=== PATIENT | female | born 1995 | race Caucasian/White ===

== ENCOUNTER → 2017-11-26 15:08 | Outpatient (CLI) | payer OTHER, SELFPAY ==
[2017-11-26 15:38] LABS: Basophils % 0.4 % (0.1-2.0); Eosinophils # 0.1 K/mm3 (0.0-0.4); Hemoglobin 11.9 g/dL (12.2-16.2); Lymphocytes # 2.3 K/mm3 (0.7-4.5); Lymphocytes % 21.6 K/mm3 (10-50); Mean Corpuscular Hemoglobin 28.1 pg (27.0-31.2); Mean Corpuscular Volume 85.2 fl (81-99); Mean Platelet Volume 7.7 fl (7.4-10.4); Monocytes # 0.4 K/mm3 (0.1-1.0); Monocytes % 3.8 % (1.7-9.3); Neutrophils # 7.8 K/mm3 (1.8-7.8); Neutrophils % 73.1 % (37.0-80.0); Platelet Count 286 K/mm3 (142-424); Red Blood Count 4.23 M/mm3 (4.20-5.40); Red Cell Distribution Width 12.7 % (11.5-17.5); White Blood Count 10.7 K/mm3 (4.5-13.0)
[2017-11-26 20:15] LABS: Amphetamine/Metha Screen,Urine Negative ng/mL (<1000); Barbiturates Screen,Urine Negative ng/mL (<200); Benzodiazepines Screen,Urine Negative ng/mL (200); Cannabinoid Screen,Urine Negative ng/mL (<50); Cocaine Screen,Urine Negative ng/g (<300); Methadone Screen,Urine Negative ng/mL (<300); Opiate Screen,Urine Negative ng/mL (<300); Phencyclidine Screen,Urine Negative ng/mL (<25)
[2017-11-28 18:35] LABS: Hepatitis B Surface Antigen Negative (Negative)
[2017-11-28 18:36] LABS: HIV Screen 4th Generation wRfx Non Reactive (Non Reactive); Rubella Antibodies, IgG 1.38 index (Immune >0.99)
== END ==
PROVIDERS: PCP Family Medicine; Visit Provider Obstetrics & Gynecology
DX: Z34.90 Encounter for supervision of normal pregnancy, unspecified, unspecified trimester (principal)
CPT/HCPCS: 36415; 80305; 84443; 85025; 86703; 86762; 86850; 87340; G0432

== ENCOUNTER → 2017-12-29 09:40 | Outpatient (CLI) | payer OTHER, SELFPAY ==
[2018-01-01 02:08] LABS: AFP Value 27.8 ng/mL (.); DIA MoM 0.88 (.); DIA Value 150.47 pg/mL (.); DSR (Second Trimester) 1 IN 10000 (.); Insulin Dep Diabetes No (.); OSBR Risk 1 IN 10000 (.); Results Report (.); hCG Value 51261 mIU/mL (.); uE3 MoM 1.54 (.); uE3 Value 1.18 ng/mL (.)
[2018-01-01 12:57] LABS: Gestat. Age Based On EDD (.)
== END ==
PROVIDERS: PCP Family Medicine; Visit Provider Obstetrics & Gynecology
DX: Z34.90 Encounter for supervision of normal pregnancy, unspecified, unspecified trimester (principal)
CPT/HCPCS: 36415; 82106

== ENCOUNTER → 2018-03-23 09:04 | Outpatient (CLI) | payer OTHER, SELFPAY ==
[2018-03-23 12:52] LABS: Glucose 1 Hour 88 mg/dL (74-106)
== END ==
PROVIDERS: PCP Family Medicine; Visit Provider Obstetrics & Gynecology
DX: Z34.90 Encounter for supervision of normal pregnancy, unspecified, unspecified trimester (principal)
CPT/HCPCS: 36415; 82951

== ENCOUNTER 2018-05-02 20:09 | Outpatient (CLI) | payer OTHER, SELFPAY ==
[2018-05-02 20:23] VITALS: BMI 32.5
[2018-05-02 20:58] LABS: Microscopic, Urine URINE MICROSCOPIC (MICROSCOPIC)
[2018-05-02 21:01] LABS: Appearance,Urine CLEAR (Clear); Bilirubin,Urine Negative (Negative); Blood, Urine Negative (Negative); Color,Urine STRAW (Yellow); Glucose,Urine (UA) Negative (Negative); Ketones,Urine Negative (Negative); Leukocyte Esterase,Urine Negative (Negative); Nitrate,Urine Negative (Negative); PH,Urine 6.5 (5.0-8.5); Protein,Urine Negative (Negative); Specific Gravity, Urine <= 1.005 (1.005-1.030); Urobilinogen,Urine 0.2 EU/dl (0.2)
[2018-05-02 21:15] LABS: Bacteria,Urine Trace /lpf; WBC,Urine Occasional #/hpf (0-3)
[2018-05-02 21:23] LABS: Fetal Fibronectin (Rapid) Negative (Negative)
[2018-05-03 00:31] VITALS: BMI 32.5
== END 2018-05-02 21:45 | disposition home or self-care (01) ==
LOC: OBOUT 20:12 → OB 20:13
PROVIDERS: PCP Family Medicine; Visit Provider Nurse Practitioner Obstetrics & Gynecology
DX: O26.93 Pregnancy related conditions, unspecified, third trimester (principal); Z3A.32 32 weeks gestation of pregnancy; R10.31 Right lower quadrant pain; R10.32 Left lower quadrant pain
CPT/HCPCS: 59025; 81001; 82731

== ENCOUNTER 2018-05-12 12:26 | Outpatient (CLI) | payer OTHER, SELFPAY ==
[2018-05-12 12:35] VITALS: BMI 32.6
[2018-05-12 12:47] LABS: Microscopic, Urine URINE MICROSCOPIC (MICROSCOPIC)
[2018-05-12 12:51] LABS: Appearance,Urine CLEAR (Clear); Bilirubin,Urine Negative (Negative); Blood, Urine Negative (Negative); Color,Urine YELLOW (Yellow); Glucose,Urine (UA) Negative (Negative); Ketones,Urine Negative (Negative); Leukocyte Esterase,Urine TRACE (Negative); Nitrate,Urine Negative (Negative); Protein,Urine Negative (Negative); Specific Gravity, Urine 1.015 (1.005-1.030); Urobilinogen,Urine 0.2 EU/dl (0.2)
[2018-05-12 12:52] VITALS: BP 129/77; PULSE 99; RESP 18; TEMP 37.1; O2SAT 97; BMI 32.5
[2018-05-12 13:13] LABS: Bacteria,Urine Trace /lpf; WBC,Urine Occasional #/hpf (0-3)
[2018-05-12 13:18] LABS: Fetal Membrane Rupture (Rapid) Negative (Negative)
== END 2018-05-12 13:46 | disposition home or self-care (01) ==
LOC: OBOUT 12:27 → OB 12:29
PROVIDERS: Obstetrics & Gynecology; PCP Physician Assistant; Visit Provider Obstetrics & Gynecology
DX: O26.893 Other specified pregnancy related conditions, third trimester (principal); Z3A.33 33 weeks gestation of pregnancy
CPT/HCPCS: 59025; 81001; 84112; 96372

== ENCOUNTER → 2018-05-14 10:30 | Outpatient (REF) | payer OTHER, SELFPAY | LOC: LAB 10:30 | PROVIDERS: Visit Provider Obstetrics & Gynecology | DX: Z34.90 Encounter for supervision of normal pregnancy, unspecified, unspecified trimester (principal) | CPT/HCPCS: 86403 ==

== ENCOUNTER → 2018-06-04 08:59 | Outpatient (CLI) | payer OTHER, SELFPAY ==
[2018-06-04 09:42] LABS: Basophils % 0.2 % (0.1-2.0); Eosinophils # 0.1 K/mm3 (0.0-0.4); Eosinophils % 0.9 % (0.1-12.0); Hematocrit 38.5 % (37.0-47.0); Hemoglobin 12.3 g/dL (12.2-16.2); Lymphocytes # 2.2 K/mm3 (0.7-4.5); Lymphocytes % 19.8 K/mm3 (10-50); Mean Corpuscular HGB Conc 31.9 g/dL (31.8-35.4); Mean Corpuscular Volume 84.6 fl (81-99); Mean Platelet Volume 8.4 fl (7.4-10.4); Monocytes # 0.6 K/mm3 (0.1-1.0); Monocytes % 5.2 % (1.7-9.3); Neutrophils # 8.3 K/mm3 (1.8-7.8); Neutrophils % 73.9 % (37.0-80.0); Platelet Count 288 K/mm3 (142-424); Red Blood Count 4.55 M/mm3 (4.20-5.40); Red Cell Distribution Width 14.8 % (11.5-17.5); White Blood Count 11.3 K/mm3 (4.8-10.8)
[2018-06-04 10:53] LABS: D-Dimer 1840 ng/mL (0-400)
[2018-06-04 11:15] LABS: Alanine Aminotransferase 22 U/L (12-78); Anion Gap 15.1 mEq/L (5-15); Aspartate Amino Transferase 20 U/L (15-37); Blood Urea Nitrogen 6 mg/dL (7-18); Calcium 9.3 mg/dL (8.5-10.1); Carbon Dioxide 23 mmol/L (21.0-32.0); Chloride 104 mmol/L (98-107); Creatinine,Serum 0.58 mg/dL (0.55-1.02); Estimated Glomerular Filt Rate 131 ml/min (>60); GFR (African American) 159 ML/MIN (>60); Glucose 102 mg/dL (74-106); Potassium 4.1 mmoL/L (3.5-5.1); Sodium 138 mmol/L (136-145); Uric Acid 6.1 mg/dL (2.6-7.2)
[2018-06-04 16:23] LABS: Activated Partial Thrombo Time 25.9 seconds (23.6-34.0); Fibrinogen 491 mg/dL (204-500); Prothrombin Time 9.3 seconds (9.4-11.8)
== END ==
PROVIDERS: PCP Physician Assistant; Visit Provider Obstetrics & Gynecology
DX: Z34.90 Encounter for supervision of normal pregnancy, unspecified, unspecified trimester (principal)
CPT/HCPCS: 36415; 80048; 84450; 84460; 84550; 85025; 85378; 85384; 85610; 85730

== ENCOUNTER → 2018-06-07 09:31 | Outpatient (CLI) | payer OTHER, SELFPAY ==
[2018-06-07 10:15] LABS: Basophils % 0.3 % (0.1-2.0); Eosinophils # 0.1 K/mm3 (0.0-0.4); Eosinophils % 0.6 % (0.1-12.0); Hematocrit 35.1 % (37.0-47.0); Hemoglobin 11.2 g/dL (12.2-16.2); Lymphocytes # 2.3 K/mm3 (0.7-4.5); Lymphocytes % 20.1 K/mm3 (10-50); Mean Corpuscular Hemoglobin 26.7 pg (27.0-31.2); Mean Corpuscular Volume 83.4 fl (81-99); Mean Platelet Volume 8.1 fl (7.4-10.4); Monocytes # 0.6 K/mm3 (0.1-1.0); Monocytes % 4.7 % (1.7-9.3); Neutrophils # 8.6 K/mm3 (1.8-7.8); Neutrophils % 74.3 % (37.0-80.0); Platelet Count 270 K/mm3 (142-424); Red Blood Count 4.21 M/mm3 (4.20-5.40); White Blood Count 11.6 K/mm3 (4.8-10.8)
[2018-06-07 10:20] LABS: Alanine Aminotransferase 19 U/L (12-78); Anion Gap 17.8 mEq/L (5-15); Aspartate Amino Transferase 15 U/L (15-37); Blood Urea Nitrogen 7 mg/dL (7-18); Calcium 8.9 mg/dL (8.5-10.1); Carbon Dioxide 22 mmol/L (21.0-32.0); Chloride 104 mmol/L (98-107); Creatinine,Serum 0.68 mg/dL (0.55-1.02); Estimated Glomerular Filt Rate 109 ml/min (>60); GFR (African American) 132 ML/MIN (>60); Glucose 99 mg/dL (74-106); Potassium 3.8 mmoL/L (3.5-5.1); Sodium 140 mmol/L (136-145); Uric Acid 7.1 mg/dL (2.6-7.2)
[2018-06-07 10:42] LABS: D-Dimer 2100 ng/mL (0-400)
[2018-06-07 11:02] LABS: Activated Partial Thrombo Time 25.6 seconds (23.6-34.0); Fibrinogen 461 mg/dL (204-500); Prothrombin Time 9.3 seconds (9.4-11.8)
== END ==
PROVIDERS: PCP Physician Assistant; Visit Provider Obstetrics & Gynecology
DX: O14.90 Unspecified pre-eclampsia, unspecified trimester (principal)
CPT/HCPCS: 36415; 80048; 84450; 84460; 84550; 85025; 85378; 85384; 85610; 85730

== ENCOUNTER 2018-06-10 11:36 | Inpatient (IN) ==
[2018-06-10 12:29] LABS: Basophils % 0.4 % (0.1-2.0); Eosinophils # 0.1 K/mm3 (0.0-0.4); Eosinophils % 0.5 % (0.1-12.0); Hematocrit 36.2 % (37.0-47.0); Hemoglobin 11.6 g/dL (12.2-16.2); Lymphocytes # 2.1 K/mm3 (0.7-4.5); Lymphocytes % 19.9 K/mm3 (10-50); Mean Corpuscular HGB Conc 32.1 g/dL (31.8-35.4); Mean Corpuscular Hemoglobin 26.5 pg (27.0-31.2); Mean Corpuscular Volume 82.4 fl (81-99); Mean Platelet Volume 8.3 fl (7.4-10.4); Monocytes # 0.6 K/mm3 (0.1-1.0); Neutrophils # 7.7 K/mm3 (1.8-7.8); Neutrophils % 73.2 % (37.0-80.0); Platelet Count 302 K/mm3 (142-424); Red Blood Count 4.39 M/mm3 (4.20-5.40); White Blood Count 10.5 K/mm3 (4.8-10.8)
[2018-06-10 12:40] LABS: Calcium 9.4 mg/dL (8.5-10.1); Uric Acid 6.3 mg/dL (2.6-7.2)
[2018-06-10 13:03] LABS: Activated Partial Thrombo Time 24.1 seconds (23.6-34.0); INR 0.89 (0.9-1.1); Prothrombin Time 9.2 seconds (9.4-11.8)
--- NOTE | 2018-06-10 14:35 | Progress Note ---
Internal Medicine - PN: Subj *Date: 06/10/18 *Time: 14:32 Interval history: This 23-year-old 1, para 0, Ab0 white female was admitted at 37-6/7 weeks with signs and symptoms of preeclampsia. Her blood pressure in the office was 132/93 (previous diastolic 75), with increased reflexes and 2+ edema. An ultrasound also showed diminishing amniotic fluid (oligohydramnios). She was admitted for stabilization magnesium sulfate prior to induction. However, upon admission to the labor room, her blood pressure is 116/76, and the baby delivered on the monitor. Her D-dimers, however, have increased from 2100 to greater than 2500. The plan is to observe her and stabilize her on bedrest. Her cervix is 75% effaced, 2 cm, with the resenting vertex at -2 station. Plan is to begin induction late tonight. The patient and her family understand and accept this plan. Exam Vital signs and Labs for Last 24 Hours: Temp Pulse Resp BP 98.0 F 80 20 116/67 06/10/18 12:39 06/10/18 12:39 06/10/18 12:39 06/10/18 12:39 Laboratory Results - last 24 hr 06/10/18 12:15: WBC 10.5, RBC 4.39, Hgb 11.6 L, Hct 36.2 L, MCV 82.4, MCH 26.5 L , MCHC 32.1, RDW 15.0, Plt Count 302, MPV 8.3, Neut % (Auto) 73.2, Lymph % (Auto) 19.9, [place] % (Auto) 6.0, Eos % (Auto) 0.5, Baso % (Auto) 0.4, Neut # (Auto) 7.7, Lymph # (Auto) 2.1, [place] # (Auto) 0.6, Eos # (Auto) 0.1, Baso # (Auto) 0.0 06/10/18 12:15: PT 9.2 L, INR 0.89 L, APTT 24.1, Fibrinogen 486, D-Dimer 2560 H* 06/10/18 12:15: Sodium 138, Potassium 4.0, Chloride 104, Carbon Dioxide 22, Anion Gap 16.0 H, BUN 6 L, Creatinine 0.60, Estimated Creat Clear 192, Estimated GFR 126, Est GFR ( Amer) 153, Glucose 85, Uric Acid 6.3, Calcium 9.4, Magnesium 1.8, AST 18, ALT 23 06/10/18 12:15: Blood Type A Positive, Antibody Screen Negative I & O for Last 24 hours: Intake & Output 06/08/18 06/09/18 06/10/18 06/11/18 11:59 11:59 11:59 11:59 Weight 181 lb
--- NOTE | 2018-06-11 06:19 | Progress Note ---
Internal Medicine - PN: Subj *Date: 06/11/18 *Time: 06:17 Interval history: This is hospital day #2. At 0200 intravenous Pitocin was begun. At time the patient's cervix was 3 cm dilated. At 0330, there was spontaneous rupture of membranes (clear fluid). The patient's pressure remained to be in the 130s over 70s. Reflexes are normal. An epidural has been placed, and internal monitor was just applied. Cervix is now completely effaced, 9 cm, with the presenting vertex at 0 station. Vaginal delivery anticipated. Exam Vital signs and Labs for Last 24 Hours: Temp Pulse Resp BP 98.0 F 80 20 116/67 06/10/18 12:39 06/10/18 12:39 06/10/18 12:39 06/10/18 12:39 Laboratory Results - last 24 hr 06/10/18 12:15: WBC 10.5, RBC 4.39, Hgb 11.6 L, Hct 36.2 L, MCV 82.4, MCH 26.5 L , MCHC 32.1, RDW 15.0, Plt Count 302, MPV 8.3, Neut % (Auto) 73.2, Lymph % (Auto) 19.9, [place] % (Auto) 6.0, Eos % (Auto) 0.5, Baso % (Auto) 0.4, Neut # (Auto) 7.7, Lymph # (Auto) 2.1, [place] # (Auto) 0.6, Eos # (Auto) 0.1, Baso # (Auto) 0.0 06/10/18 12:15: PT 9.2 L, INR 0.89 L, APTT 24.1, Fibrinogen 486, D-Dimer 2560 H* 06/10/18 12:15: Sodium 138, Potassium 4.0, Chloride 104, Carbon Dioxide 22, Anion Gap 16.0 H, BUN 6 L, Creatinine 0.60, Estimated Creat Clear 192, Estimated GFR 126, Est GFR ( Amer) 153, Glucose 85, Uric Acid 6.3, Calcium 9.4, Magnesium 1.8, AST 18, ALT 23 06/10/18 12:15: Blood Type A Positive, Antibody Screen Negative I & O for Last 24 hours: Intake & Output 06/08/18 06/09/18 06/10/18 06/11/18 11:59 11:59 11:59 11:59 Weight 181 lb
--- NOTE | 2018-06-11 06:56 | Progress Note ---
Internal Medicine - PN: Subj *Date: 06/11/18 *Time: 06:56 (Cervix now completely effaced, a rim, 0 station. Doing well.) Exam Vital signs and Labs for Last 24 Hours: Temp Pulse Resp BP 98.0 F 80 20 116/67 06/10/18 12:39 06/10/18 12:39 06/10/18 12:39 06/10/18 12:39 Laboratory Results - last 24 hr 06/10/18 12:15: WBC 10.5, RBC 4.39, Hgb 11.6 L, Hct 36.2 L, MCV 82.4, MCH 26.5 L , MCHC 32.1, RDW 15.0, Plt Count 302, MPV 8.3, Neut % (Auto) 73.2, Lymph % (Auto) 19.9, [place] % (Auto) 6.0, Eos % (Auto) 0.5, Baso % (Auto) 0.4, Neut # (Auto) 7.7, Lymph # (Auto) 2.1, [place] # (Auto) 0.6, Eos # (Auto) 0.1, Baso # (Auto) 0.0 06/10/18 12:15: PT 9.2 L, INR 0.89 L, APTT 24.1, Fibrinogen 486, D-Dimer 2560 H* 06/10/18 12:15: Sodium 138, Potassium 4.0, Chloride 104, Carbon Dioxide 22, Anion Gap 16.0 H, BUN 6 L, Creatinine 0.60, Estimated Creat Clear 192, Estimated GFR 126, Est GFR ( Amer) 153, Glucose 85, Uric Acid 6.3, Calcium 9.4, Magnesium 1.8, AST 18, ALT 23 06/10/18 12:15: Blood Type A Positive, Antibody Screen Negative I & O for Last 24 hours: Intake & Output 06/08/18 06/09/18 06/10/18 06/11/18 11:59 11:59 11:59 11:59 Weight 181 lb
--- NOTE | 2018-06-11 07:14 | Progress Note ---
[facility] Anesthesia Checklist - Structural Data Admitted From: Inpatient Planned Operative Procedure/s: labor epidural Consent for Planned Operative Procedure(s) Verified: Yes - Airway Assessment C-Spine Mobility Assessed: Yes TMJ Mobility Assessed: Yes Dentition: Good Dentition - Neurological Assessment Level of Consciousness: Awake, Alert, Appropriate, Restless - Anesthesia Plan Anesthesia Risk discussed: Yes Anesthesia Plan: Verified ASA Class: II Anesthesia Type: Epidural [facility] History I have reviewed the patient's past medical history: Yes Medical History: Reports:: Migraine Other Surgeries: Yes: No Previous Surgery. No: Amputation: No Fractures: No - *Social History Smoking Status: Never smoker Alcohol Intake: former Alcohol Intake Frequency:: holidays/special occasions only Substance Use Type: denies use *Family Hx:: Cancer, Hypertension, Diabetes GASKET INSPECTOR history: No GASKET INSPECTOR history Para: 0
--- NOTE | 2018-06-11 11:44 | Procedure Note ---
- Delivery Note Delivery Date:: 06/11/18 Delivery Time:: 10:51 Anesthesia Type: Epidural Was labor medically induced?: Yes Induction method: per pitocin protocol Gestational age (weeks): 38 (PIH/oligohydramnios) delivered prior to 39 weeks?: Yes Justification for early elective delivery:: Gestational Hypertension, Oligohydraminos Gender: Female at 1 minute: 9 at 5 minutes: 9 AF:: Clear LAC or MLE?: LAC (LT labial tear) Delivery Procedure:: This 23-year-old 1, now para 1, Ab0 white female was admitted at 38 weeks of gestation with oligohydramnios and -induced attention. When she arrived in the labor room, her blood pressure was normal and stable, but she still exhibited deep tendon reflex hyperactivity. Her D-dimers were over 2500. Sulfate was withheld, and the patient remained stable, until an induction was begun at 02 100 this morning with intravenous Pitocin, per protocol. Completion, and delivered spontaneously, without an episiotomy, at 1051 on/oh 01/22. There was no meconium, nor was there a nuchal cord. Spontaneous rupture of membranes had occurred at 03 30. The baby was an 9/9, 7 pound 2 ounce, 19 inch female , born at 1051. The baby was recovered in excellent condition. The placenta delivered spontaneously, intact, at 1053, making the total time in labor 8 hours 53 minutes. The uterus was inspected and was felt to be clean, and was involuting well, with IV Pitocin running. The rectovaginal septum was intact at the close of the procedure. However, there was a left labial laceration, which was closed with a running unlocked suture of 2-0 Vicryl. The sponge and needle counts correct. The estimated blood loss was 350 cc. The patient tolerated the procedure well, and was recovered in excellent condition. Her blood type is A+. Her rubella titer is immune. She plans to feed. Laceration:: labial (LEFT) Placental Delivery Description: Spontaneous
[2018-06-12 06:23] LABS: Hematocrit 28.6 % (37.0-47.0); Hemoglobin 10.1 g/dL (12.2-16.2)
--- NOTE | 2018-06-12 08:36 | Progress Note ---
Internal Medicine - PN: Subj *Date: 06/12/18 *Time: 08:35 (This is day #1. The patient is afebrile. Vital signs stable. Abdomen soft. Lochia normal. Perineum healing well. Is feeding well. Hemoglobin 10.1 g, but clinically stable. Impression: Stable.) Exam Vital signs and Labs for Last 24 Hours: Temp Pulse Resp BP 98.0 F 80 20 116/67 06/10/18 12:39 06/10/18 12:39 06/10/18 12:39 06/10/18 12:39 Laboratory Results - last 24 hr 06/11/18 10:50: Cord ABG pH 7.37 06/12/18 06:03: Hgb 10.1 L, Hct 28.6 L I & O for Last 24 hours: Intake & Output 06/09/18 06/10/18 06/11/18 06/12/18 11:59 11:59 11:59 11:59 Weight 181 lb
[2018-06-12 10:27] VITALS: BP 117/62
--- NOTE | 2018-06-13 08:30 | Progress Note ---
Internal Medicine - PN: Subj *Date: 06/13/18 *Time: 08:29 (This is hospital day #4 and day #2. The patient is afebrile. Vital signs stable. Abdomen soft. Lochia normal. Perineum healing well. Hemoglobin 10.1 g, but clinically stable. Nursing well. She will be discharged today.) Exam Vital signs and Labs for Last 24 Hours: Temp Pulse Resp BP Pulse Ox 98.1 F 68 18 117/62 99 06/12/18 10:25 06/12/18 10:25 06/12/18 10:25 06/12/18 10:25 06/12/18 10:25 I & O for Last 24 hours: Intake & Output 06/10/18 06/11/18 06/12/18 06/13/18 11:59 11:59 11:59 11:59 Weight 181 lb
--- NOTE | 2018-06-13 08:33 | Discharge Summary ---
General - General Admission date:: 06/10/18 Discharge date: 06/13/18 (This 23-year-old 1, now para 1, Ab0 white female was admitted at 38 weeks of gestation with signs and symptoms of preeclampsia and oligohydramnios as noted on ultrasound. When she arrived in labor and delivery, her blood pressure was normal, and she was observed without the planned magnesium sulfate infusion. NST was reactive. Ultimately she was induced with intravenous Pitocin, and labored under a labor epidural, which worked well. She went steadily to completion and delivered spontaneously, without an episiotomy, on 06/11/18. The baby was an 9/9, 7 pound 2 ounce, 19 inch female infant, born at 1051 on 06/11/18. The baby is breast-feeding, and is done well. The patient sustained a left labial laceration at delivery, which was repaired in the usual fashion. There is minimal swelling in that area, and the patient does not have significant pain. , she has done well. Her blood pressure has remained in the 110s over 70s. Her lochia is normal. Her uterine fundus has involuted well. Her hemoglobin is 10.5 g, but she is clinically stable. She is not a smoker. She is discharged home on the fourth hospital and second day on iron and vitamins, and on Tylenol and Motrin, as needed for pain. Her blood type is A+. Her rubella titer is immune. She plans to continue to breast-feed. He is given appropriate instructions as to diet, exercise, and perineal care, and she is to return the office in 3 weeks for follow-up.) Objective Vital signs: Temp Pulse Resp BP Pulse Ox 98.1 F 68 18 117/62 99 06/12/18 10:25 06/12/18 10:25 06/12/18 10:25 06/12/18 10:25 06/12/18 10:25 Discharge Plan - Patient Discharge Instructions - Follow up Plan Home Medications: Home Medications Medication Instructions Recorded Confirmed Type 1 tab PO HS 11/26/17 06/11/18 History vitamin,calcium,xjtxtrjb-wzri-uuysr acid tablet Ferrous Sulfate 325 mg PO DAILY 06/11/18 06/11/18 History Prescriptions/Medication Reconciliation: No Action vitamin,calcium,gvuzurxf-dmgx-ulxcl acid tablet 1 tab PO HS Ferrous Sulfate 325 mg PO DAILY
== END 2018-06-13 11:05 | disposition home or self-care (01) ==
LOC: OB 11:36
PROVIDERS: ADMIT Obstetrics & Gynecology; ATTEND Obstetrics & Gynecology

== ENCOUNTER → 2023-07-03 14:11 | Outpatient (CLI) | payer BC, SELFPAY ==
[2023-07-12 12:19] LABS: Anti Mullerian Hormone (AMH) 11.4
== END ==
PROVIDERS: PCP Obstetrics & Gynecology; Visit Provider Obstetrics & Gynecology
DX: Z87.42 Personal history of other diseases of the female genital tract (principal)
CPT/HCPCS: 36415; 82397

== ENCOUNTER → 2023-07-03 15:06 | Outpatient (CLI) | payer BC, SELFPAY | PROVIDERS: PCP Emergency Medicine; Visit Provider Obstetrics & Gynecology | DX: Z87.42 Personal history of other diseases of the female genital tract (principal) ==

== ENCOUNTER → 2023-07-17 11:28 | Outpatient (CLI) | payer BC, SELFPAY ==
--- NOTE | 2023-07-17 11:37 | FL_ITS ---
FINAL REPORT CLINICAL HISTORY: PCOS FT 0.27 MIN DAP- 269.36 FINDINGS: FLUOROSCOPY LESS THAN 1 HOUR HISTORY: Fluoroscopy guidance. FINDINGS: Fluoroscopic guidance was provided for hysterosalpingography. Two spot films were obtained. A total of 0.27 minutes of fluoroscopy time were used. DAP: 269.36 mGy IMPRESSION: As above. Reviewed, Interpreted and Dictated by Uli Gardner III, MD Transcribed by Holley Ballard Authenticated and [facility]
--- NOTE | 2023-07-17 12:24 | P.PCN_ITS ---
[facility] Procedure Note Date: 07/17/23 Time: 12:15 Procedure Note:: LMP: first of April. Last intercourse 3 days ago. UPT negative today prior to procedure. Findings: bilateral patent fallopian tubes without hydrosalpinx. No endometrial filling defects noted. Patient was positioned in the dorsal lithotomy position. Speculum was inserted. Cervix and vagina was cleansed with Hibiclens. 20 cc of contrast was drawn up into a syringe and attached to the Eduardo HSG cannula. Contrast was flushed through cannula to remove air bubbles and ensure patency. Cannula was then inserted into the cervix. Fluoroscopy was initiated with 10 cc of contrast injected into the endometrial cavity. Fluoroscopy demonstrated contrast immediately flowing from endometrial cavity through bilateral fallopian tubes revealing patent bilateral fallopian tubes. Cavity appeared normal shape. Cannula was removed from the cervix. Hemostasis was noted. Speculum removed from the vagina. Patient tolerated the procedure well.
== END ==
LOC: RAD 11:32
PROVIDERS: PCP Emergency Medicine; Visit Provider Obstetrics & Gynecology
DX: E28.2 Polycystic ovarian syndrome (principal); Z31.9 Encounter for procreative management, unspecified
CPT/HCPCS: 74740; Q9967